=== PATIENT | male | born 1995 | race Caucasian/White ===

== ENCOUNTER 2020-08-04 12:05 | Emergency (ER) | payer SELFPAY ==
[2020-08-04] MEDS ORDERED: IBUPROFEN 800 MG TABLET PO ONE (12:55)
--- NOTE | 2020-08-04 13:00 | ER Document Report ---
ED Extremity Problem, Lower - General Chief Complaint: Foot Injury Stated Complaint: LEFT FOOT PAIN Time Seen by Provider: 08/04/20 12:55 Primary Care Provider: BIJAL RAYGOZA DPM [ACTIVE STAFF] - Follow up as needed ELISHA LARRY MD [ACTIVE STAFF] - Follow up as needed REHAN DEAN MD [ACTIVE STAFF] - Follow up as needed Mode of Arrival: Ambulatory Information source: Patient Notes: 24-year-old male presented to ED for complaint of pain to his left foot. He states last week he tore his shoe while up so he had to buy a new pair shoes by yesterday his foot was hurting so bad that he had to home from work. He states the pain is so bad that he cannot get up and go to work today. He states he does not know what he did to his foot. I have offered him an x-ray and some ibuprofen and then we will discuss it again. 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 He does smoke half pack a day smokes pot does not use any alcohol. He is alert oriented respirations regular and unlabored speaking in full sentences. He is walking with a steady gait to be seen. REVIEW OF SYSTEMS: CONSTITUTIONAL : Denies fever, chills, or sweats. Denies recent illness. EENT: Denies eye, ear, throat, or mouth pain or symptoms. Denies nasal or sinus congestion. CARDIOVASCULAR: Denies chest pain. RESPIRATORY: Denies cough, cold, or chest congestion. Denies shortness of breath, difficulty breathing, or wheezing. MUSCULOSKELETAL: Pain to the left foot and ankle. He states it is too painful to go to work today. SKIN: Denies rash or skin lesions. HEMATOLOGIC : Denies easy bruising or bleeding. LYMPHATIC: Denies swollen, enlarged glands. NEUROLOGICAL: Denies altered mental status or loss of consciousness. Denies headache. Denies weakness or paralysis or loss of use of either side. Denies problems with gait or speech. Denies sensory or motor loss. PSYCHIATRIC: Denies anxiety or stress or depression. ALL OTHER SYSTEMS REVIEWED AND NEGATIVE. PHYSICAL EXAMINATION: GENERAL: Well-appearing, well-nourished and in no acute distress. HEAD: Atraumatic, normocephalic. EYES: Pupils equal round extraocular movements intact, conjunctiva are normal. ENT: Nares patent NECK: Normal range of motion LUNGS: No respiratory distress Musculoskeletal: Normal range of motion patient states he does have pain to the top of the foot and the back of the ankle and is unable to walk on it to go to work today. She is ambulating with a normal gait but states he would have to walk on it a lot at work NEUROLOGICAL: Normal speech, normal gait. PSYCH: Normal mood, normal affect. SKIN: Warm, Dry, normal turgor, no rashes or lesions noted. TRAVEL OUTSIDE OF THE [place] IN LAST 30 DAYS: No - HPI Patient complains to provider of: Pain Location: Foot Occurred: Last week Where: Home Onset/Duration: Gradual Quality of pain: Burning Severity: Moderate Pain Level: 4 Context: Other Recent injury: No Associated symptoms: Painful ambulation Exacerbated by: Movement, Walking Relieved by: Nothing - Related Data Allergies/Adverse Reactions: amoxicillin [From Augmentin] Allergy (Verified 10/23/16 07:58) amoxicillin trihydrate [From Augmentin] Allergy (Verified 01/18/16 08:04) clavulanic acid [From Augmentin] Allergy (Verified 10/23/16 07:58) Potassium Clavulanate * [From Augmentin] Allergy (Verified 01/18/16 08:04) Past Medical History - General Information source: Patient - Social History Smoking Status: Current Every Day Smoker Cigarette use (# per day): Yes - Half pack a day Smoking Education Provided: Yes Frequency of alcohol use: None Drug Abuse: Marijuana Family History: Malignancy, Hypertension, Reviewed & Not Pertinent Patient has suicidal ideation: No Patient has homicidal ideation: No - Past Medical History Cardiac Medical History: Reports: Hx Hypertension Pulmonary Medical History: Reports: None EENT Medical History: Reports: None Neurological Medical History: Reports: None Endocrine Medical History: Reports: None Renal/ Medical History: Reports: Other - His ureters were not attached to kidneys at Malignancy Medical History: Reports None GI Medical History: Reports: None Musculoskeletal Medical History: Reports Hx Musculoskeletal Trauma - Sprained left ankle Skin Medical History: Reports None Psychiatric Medical History: Reports: None Traumatic Medical History: Reports: None Infectious Medical History: Reports: None Past Surgical History: Reports: Hx Kidney (Renal Surgery) - R kidney removal as infant - Immunizations Immunizations up to date: Yes Physical Exam - Vital signs Vitals: Temp Pulse Resp BP Pulse Ox 98.5 F 76 18 173/90 H 99 08/04/20 12:08/04/20 12:08/04/20 12:08/04/20 12:08/04/20 12:09 Course - Re-evaluation Re-evalutation: 08/04/20 22:31 X-rays were negative. Written report of x-rays were given to patient. Patient was given a referral to orthopedics and podiatry and is given a work note for couple days as he states that he needs rest in order to be able to work due to the pain. Patient states he did not need any splinting or crutches. He states he was perfectly able to walk. He was treated with ibuprofen in the emergency room and stated his pain was much better before he was discharged. - Vital Signs Vital signs: Temp Pulse Resp BP Pulse Ox 98.5 F 76 18 150/77 H 99 08/04/20 12:08/04/20 12:08/04/20 12:08/04/20 14:32 08/04/20 12:09 - Diagnostic Test Radiology reviewed: Image reviewed, Reports reviewed Discharge - Discharge Clinical Impression: Foot pain, left Left ankle pain Qualifiers: Chronicity: acute Qualified Code(s): M25.572 - Pain in left ankle and joints of left foot Condition: Stable Disposition: HOME, SELF-CARE Additional Instructions: You were seen today for pain to the left foot and ankle. X-ray does not show any acute injuries. Ibuprofen Ibuprofen is an excellent, safe drug for pain control. In addition, it has potent antiinflammatory effects which are beneficial, especially in the treatment of injuries, arthritis, or tendonitis. It's best to take ibuprofen with food. Persons with ulcer disease or allergy to aspirin should notify their physician of this before taking ibuprofen. Take the medication exactly as prescribed. Don't take additional doses unless instructed to do so by your doctor. If you develop wheezing, shortness of breath, hives, faintness, stomach pain, vomiting, or dark black stools, return for re-evaluation at once. FOLLOW-UP CARE: If you have been referred to a physician for follow-up care, call the physicians office for an appointment as you were instructed or within the next two days. If you experience worsening or a significant change in your symptoms, notify the physician immediately or return to the Emergency Department at any time for re-evaluation. Forms: Elevated Blood Pressure, Smoking Cessation Education, Return to Work Referrals: REHAN DEAN MD [ACTIVE STAFF] - Follow up as needed ELISHA LARRY MD [ACTIVE STAFF] - Follow up as needed BIJAL RAYGOZA DPM [ACTIVE STAFF] - Follow up as needed
--- NOTE | 2020-08-04 13:47 | RADIOLOGY REPORT (SQ) ---
EXAM DESCRIPTION: ANKLE LEFT COMPLETE IMAGES COMPLETED DATE/TIME: 08/04/2020 1:35 pm REASON FOR STUDY: Pain to the left foot and ankle COMPARISON: None. NUMBER OF VIEWS: Three views. TECHNIQUE: AP, lateral, and oblique radiographic images acquired of the left ankle. LIMITATIONS: None. FINDINGS: MINERALIZATION: Normal. BONES: No acute fracture or dislocation. No worrisome bone lesions. JOINTS: No effusions. SOFT TISSUES: No soft tissue swelling. No foreign body. OTHER: No other significant finding. IMPRESSION: NEGATIVE STUDY OF THE LEFT ANKLE. NO RADIOGRAPHIC EVIDENCE OF ACUTE INJURY. TECHNICAL DOCUMENTATION: JOB ID: [id number] 2010 [employer]- All Rights Reserved Reading location - IP/workstation name: [email or web address]
--- NOTE | 2020-08-04 13:48 | RADIOLOGY REPORT (SQ) ---
EXAM DESCRIPTION: FOOT LEFT COMPLETE IMAGES COMPLETED DATE/TIME: 08/04/2020 1:36 pm REASON FOR STUDY: Pain to the left foot and ankle COMPARISON: None. NUMBER OF VIEWS: Three views. TECHNIQUE: AP, lateral and oblique radiographic images acquired of the left foot. LIMITATIONS: None. FINDINGS: MINERALIZATION: Normal. BONES: No acute fracture or dislocation. No worrisome bone lesions. JOINTS: No effusions. SOFT TISSUES: No soft tissue swelling. No foreign body. OTHER: No other significant finding. IMPRESSION: NEGATIVE STUDY OF THE LEFT FOOT. NO RADIOGRAPHIC EVIDENCE OF ACUTE INJURY. TECHNICAL DOCUMENTATION: JOB ID: [id number] 2010 [employer]- All Rights Reserved Reading location - IP/workstation name: [email or web address]
[2020-08-04 14:33] VITALS: BP 150/77
== END 2020-08-04 14:32 | disposition home or self-care (01) ==
LOC: ER 12:05
DX: M25.572 Pain in left ankle and joints of left foot (principal); F17.210 Nicotine dependence, cigarettes, uncomplicated; I10 Essential (primary) hypertension; Z88.0 Allergy status to penicillin
CPT/HCPCS: 99283